=== PATIENT | male | born 1995 | race Caucasian/White ===

== ENCOUNTER 2019-07-05 21:38 | Observation (INO) | payer BC ==
[~2019-07-05] VITALS: Ht 172.7 cm; Wt 59.6 kg
[2019-07-05 22:48] LABS: BASOPHILS ABSOLUTE AUTO 0.02 K/mm3 (0.00-0.23); BASOPHILS PERCENT AUTO 0 % (0-2); EOSINOPHILS ABSOLUTE AUTO 0.02 K/mm3 (0.00-0.68); EOSINOPHILS PERCENT AUTO 0 % (0-6); Hematocrit 49.7 % (37.0-53.0); Hemoglobin 16.6 g/dL (13.5-17.5); IMMATURE GRAN ABSOLUTE AUTO 0.04 K/mm3 (0.00-0.10); IMMATURE GRAN PERCENT AUTO 0 % (0-1); LYMPHOCYTES ABSOLUTE AUTO 0.39 K/mm3 (0.84-5.20); LYMPHOCYTES PERCENT AUTO 3 % (21-46); MONOCYTES ABSOLUTE AUTO 0.42 K/mm3 (0.16-1.47); MONOCYTES PERCENT AUTO 4 % (4-13); Mean Corpuscular HGB 29.9 pg (26.0-34.0); Mean Corpuscular HGB Conc 33.4 g/dL (31.5-36.5); Mean Corpuscular Volume 89 fL (80-100); Mean Platelet Volume 10.8 fL (9.1-12.4); NEUTROPHILS ABSOLUTE AUTO 10.61 K/mm3 (1.96-9.15); NEUTROPHILS PERCENT AUTO 92 % (41-73); Platelet Count 197 K/mm3 (150-400); RDW Coefficient Variation 12.1 % (11.7-14.2); RDW Standard Deviation 39.8 fL (35.1-46.3); Red Blood Cell Count 5.56 M/mm3 (4.30-5.90)
[2019-07-05 22:56] LABS: Alanine Aminotransfer (ALT/SGP 28 U/L (12-78); Albumin, Blood 4.6 g/dL (3.4-5.0); Albumin/Globulin Ratio 1.3 (0.8-1.8); Alk Phos 51 U/L (50-136); Anion Gap 6 mmol/L (6-16); Aspartate Aminotrans (AST/SGOT 31 U/L (12-37); Bilirubin, Total 4.8 mg/dL (0.1-1.0); Blood Urea Nitrogen 15 mg/dL (8-24); Bun/Creatinine Ratio 17.9 (12.0-20.0); CO2, Blood 27 mmol/L (21-32); Calcium, Blood 9.2 mg/dL (8.5-10.1); Chloride, Blood 107 mmol/L (98-108); Creatinine, Blood 0.84 mg/dL (0.60-1.20); Globulin, Blood 3.6 g/dL (2.2-4.0); Glomerular Filtration Rate >60 (60-); Glucose, Blood 96 mg/dL (70-99); Potassium, Blood 4.1 mmol/L (3.5-5.5); Sodium, Blood 140 mmol/L (136-145); Total Protein, Blood 8.2 g/dL (6.4-8.2)
--- NOTE | 2019-07-06 04:22 | NUR ---
SHIFT SUMMARY Pt's LS Clr t/o and BT+. Pt was admitted for observation after going to ER for vomiting multiple times today. The vomit had dark red blood in it and he became concerned and went to ER. They did some initial tests on him then told him he would be scheduled for a scope on 07/06/19. He is currently on a clear liquid diet. He has been very tired since getting up to this floor and appears to be sleeping. No c/o stomach pain and he has not vomited since last night.
[2019-07-06 04:44] LABS: Hematocrit 43.3 % (37.0-53.0); Hemoglobin 14.6 g/dL (13.5-17.5); Mean Corpuscular HGB 30.1 pg (26.0-34.0); Mean Corpuscular HGB Conc 33.7 g/dL (31.5-36.5); Mean Corpuscular Volume 89 fL (80-100); Mean Platelet Volume 10.3 fL (9.1-12.4); Platelet Count 184 K/mm3 (150-400); RDW Coefficient Variation 12.1 % (11.7-14.2); RDW Standard Deviation 39.7 fL (35.1-46.3); Red Blood Cell Count 4.85 M/mm3 (4.30-5.90); White Blood Cell Count 8.93 K/mm3 (4.00-11.30)
[2019-07-06 05:07] LABS: Alanine Aminotransfer (ALT/SGP 26 U/L (12-78); Albumin, Blood 3.8 g/dL (3.4-5.0); Albumin/Globulin Ratio 1.3 (0.8-1.8); Alk Phos 44 U/L (50-136); Anion Gap 7 mmol/L (6-16); Aspartate Aminotrans (AST/SGOT 23 U/L (12-37); Bilirubin, Total 5.4 mg/dL (0.1-1.0); Blood Urea Nitrogen 15 mg/dL (8-24); Bun/Creatinine Ratio 19.1 (12.0-20.0); CO2, Blood 26 mmol/L (21-32); Calcium, Blood 8.3 mg/dL (8.5-10.1); Chloride, Blood 108 mmol/L (98-108); Creatinine, Blood 0.79 mg/dL (0.60-1.20); Glomerular Filtration Rate >60 (60-); Glucose, Blood 82 mg/dL (70-99); Potassium, Blood 3.8 mmol/L (3.5-5.5); Sodium, Blood 141 mmol/L (136-145); Total Protein, Blood 6.8 g/dL (6.4-8.2)
--- NOTE | 2019-07-06 07:00 | NUR ---
ASSUMED CARE OF PT- BEDSIDE REPORT COMPLETED WITH NIGHT RN. PT ADMITTED FOR HEMATAEMESIS. PT HAS PHOTOS ON HIS PHONE OF BRIGHT RED BLOOD THAT HE STATED HE VOMITED. NO BLOODY EMESIS NOTED SINCE ADMIT PER REPORT. PT HGB DROPPED 2 POINTS FROM 16 TO 14. PT ALERT AND ORIENTED INDEPENDENT IN THE ROOM.
--- NOTE | 2019-07-06 09:07 | NUR ---
DISCHARGE NOTE- PT STATED HE WAS PLANNING TO LEAVE AT 0900. SPOKE TO DR GARZA HE IS AWARE. CALLED DR SHARMA TO ENSURE HE HAD THE CONSULT. PT SPOKE UP AFTER THE CALL AND SAID "WELL I AM LEAVING IN [address] DR GARZA CAME TO SEE THE PT AND EXPRESSED HIS CONCERN ABOUT THE PT LEAVING AND DISCUSSED THE RISKS THE PT IS TAKING BY LEAVING AGAINST MEDICAL ADVICE. PT SIGNED THE AMA FORM AND LEFT THE HOSPITAL IN THE COMPANY OF HIS FRIENDS. [employer] NOTIFIED.
== END 2019-07-06 08:52 | disposition left against medical advice (07) ==
LOC: ER 21:38 → MEDS 21:39
PROVIDERS: Emergency Medicine; ADMIT Internal Medicine
DX: K92.0 Hematemesis (principal); F17.220 Nicotine dependence, chewing tobacco, uncomplicated; Z53.29 Procedure and treatment not carried out because of patient's decision for other reasons
CPT/HCPCS: 36415; 80053; 83690; 85025; 85027; 96365; 96376; 99285-25; C9113; G0378; J7030